=== PATIENT | female | born 1960 | race Caucasian/White ===

== ENCOUNTER 2018-03-14 13:04 | Emergency (ER) | payer MEDICARE ==
[~2018-03-14] VITALS: Ht 165.1 cm; Wt 102.1 kg
[2018-03-14] MEDS ORDERED: GLIP2.5ER (13:23)
[2018-03-14] MEDS ORDERED: CHOLESTERAL MED (13:23)
[2018-03-14] MEDS ORDERED: Metformin HCl500 MG PO (13:23)
== END 2018-03-14 13:57 | disposition home or self-care (01) ==
LOC: ER 13:04
DX: S82.831A Other fracture of upper and lower end of right fibula, initial encounter for closed fracture (principal); X58.XXXA Exposure to other specified factors, initial encounter; E11.9 Type 2 diabetes mellitus without complications; Z79.899 Other long term (current) drug therapy; Z79.84 Long term (current) use of oral hypoglycemic drugs
CPT/HCPCS: 29515; 73610; 99283